=== PATIENT | female | born 1980 | race Caucasian/White ===

== ENCOUNTER 2018-08-20 19:09 | Emergency (ER) | payer BC ==
[2018-08-20 19:20] VITALS: BP 126/85
--- NOTE | 2018-08-20 21:16 | UC ---
Lower Extremity/Ankle HPI - HPI Summary HPI Summary: 37-year-old female presents with complaints of right knee pain. States she injured the knee earlier this evening while skiing causing a twisting injury prior to falling. She complains of pain and swelling to the medial aspect of the knee. She was unable to bear weight immediately after the injury or in the clinic. Denies numbness or tingling. - History of Current Complaint Chief Complaint: UCLowerExtremity Stated Complaint: LEG INJURY Time Seen by Provider: 08/20/18 20:14 Hx Obtained From: Patient Hx Last Menstrual Period: 3 wks ago Pain Intensity: 3 - Allergies/Home Medications Allergies/Adverse Reactions: Allergies Allergy/AdvReac Type Severity Reaction Status Date / Time No Known Allergies Allergy Verified 08/20/18 19:20 Home Medications: Home Medications NK [No Home Medications Reported] 08/20/18 [History Confirmed 08/20/18] PMH/Surg Hx/FS Hx/Imm Hx Previously Healthy: Yes - Denies significant PMH - Surgical History Surgical History: None - Family History Known Family History: Positive: Non-Contributory - Social History Occupation: Employed Full-time Lives: With Family Alcohol Use: None Substance Use Type: None Smoking Status (MU): Never Smoked Tobacco - Immunization History Most Recent Influenza Vaccination: 2011 Most Recent Tetanus Shot: 2011 Review of Systems All Other Systems Reviewed And Are Negative: Yes Constitutional: Positive: Negative Skin: Negative: Bruising Respiratory: Positive: Negative Cardiovascular: Positive: Negative Gastrointestinal: Positive: Negative Genitourinary: Positive: Negative Motor: Negative: Weakness Neurovascular: Negative: Decreased Sensation Musculoskeletal: Positive: Other: - See HPI Neurological: Positive: Negative Psychological: Positive: Negative Physical Exam - Summary Physical Exam Summary: GENERAL APPEARANCE: Well developed, well nourished, alert and cooperative, and appears to be in no acute distress. CARDIAC: Normal S1 and S2. No S3, S4 or murmurs. Rhythm is regular. There is no peripheral edema, cyanosis or pallor. Extremities are warm and well perfused. Capillary refill is less than 2 seconds. Peripheral pulses intact. LUNGS: Clear to auscultation without rales, rhonchi, wheezing or diminished breath sounds. ABDOMEN: Positive bowel sounds. Soft, nondistended, nontender. No guarding or rebound. No masses or hepatosplenomegally. MUSKULOSKELETAL: Tenderness and swelling to the medial aspect of the right knee with mild erythema and moderate edema. Painful passive ROM. No laxity. Unable to bear weight. NEUROLOGICAL: Strength and sensation symmetric and intact. SKIN: Skin normal color, texture and turgor. Triage Information Reviewed: Yes Vital Signs: Initial Vital Signs Temp 99.2 F 08/20/18 19:18 Pulse 59 08/20/18 19:18 Resp 18 08/20/18 19:18 BP 126/85 08/20/18 19:18 Pulse Ox 99 08/20/18 19:18 Vital Signs Reviewed: Yes Diagnostics - Radiology No standard instances Radiology Interpretation Completed By: ED Physician Summary of Radiographic Findings: No acute fracture or dislocation Lower Extremity Course/Dx - Course Course Of Treatment: 37-year-old female presents with complaints of right knee pain. States she injured the knee earlier this evening while skiing causing a twisting injury prior to falling. She complains of pain and swelling to the medial aspect of the knee. She was unable to bear weight immediately after the injury or in the clinic. Denies numbness or tingling. Exam reveals an alert female in no acute distress however does appear to be mildly uncomfortable keeping her knee extended for comfort. There is tenderness and swelling to the medial aspect of the right knee with some mild erythema. No laxity is noted. Circulation and sensation are intact distally. X-ray of the right knee showed no acute fracture or dislocation. Patient declined any pain medication. I am recommending conservative treatment for a right knee sprain with NSAIDs and RICE. She was provided crutches and recommended nonweight bearing 2 days with slow progression back to full weightbearing. She is to follow-up with orthopedic surgery in 5 days for reevaluation. Anticipatory guidance and warning symptoms were reviewed with the patient. Verbalizes understanding and agrees with plan of care. - Differential Dx/Diagnosis Differential Diagnosis/HQI/PQRI: Contusion, Fracture (Closed), Sprain Provider Diagnosis: Right knee sprain Discharge - Sign-Out/Discharge Documenting (check all that apply): Patient Departure All imaging exams completed and their final reports reviewed: No - Discharge Plan Condition: Stable Disposition: HOME Patient Education Materials: Knee Sprain (ED) Referrals: Florinda Davis MD [Primary Care Provider] - Stephanie Mcdaniels MD [Medical Doctor] - 5 Days (Call Thursday for an appointment.) Additional Instructions: The x-ray of your knee performed in the clinic [facility] showed no evidence of a fracture. The radiologist will be reviewing the x-ray tomorrow and we will contact you if they see anything that would change our plan of care. Take ibuprofen 600 mg every 8 hours with food for next 5-7 days then may take as needed. Rest the knee as much as possible. Use the crutches provided to you. No weightbearing for 2 days then you may slowly increase weightbearing until you are pain-free. Apply ice to the knee for 15-20 minutes at least 4 times a day to help with pain and swelling. You may use an MORENITA wrap or compression sleeve to the knee to help control swelling. Keep the leg elevated to help reduce swelling. Follow up with Dr. Mcdaniels, orthopedic surgery, for re-evaluation of the knee. Call first thing Thursday for an appointment. Seek immediate medical attention in the emergency room if you have severe pain not managed with pain medication, you develop numbness or tingling in the leg, foot, or toes, the foot or toes become pale or blue in color, or any worsening of symptoms. - Billing Disposition and Condition Condition: STABLE Disposition: Home
--- NOTE | 2018-08-21 15:03 | UC ---
- Progress Note Progress Note: OFFICIAL RADIOLOGY REPORT REVIEWED. No definite fracture is noted although small suprapatellar effusion is noted. NO CHANGE IN MGMT. Course/Dx - Diagnoses Provider Diagnoses: Right knee sprain Discharge - Sign-Out/Discharge Documenting (check all that apply): Post-Discharge Follow Up All imaging exams completed and their final reports reviewed: Yes - Discharge Plan Condition: Stable Disposition: HOME Patient Education Materials: Knee Sprain (ED) Referrals: Florinda Davis MD [Primary Care Provider] - Stephanie Mcdaniels MD [Medical Doctor] - 5 Days (Call Thursday for an appointment.) Additional Instructions: The x-ray of your knee performed in the clinic [facility] showed no evidence of a fracture. The radiologist will be reviewing the x-ray tomorrow and we will contact you if they see anything that would change our plan of care. Take ibuprofen 600 mg every 8 hours with food for next 5-7 days then may take as needed. Rest the knee as much as possible. Use the crutches provided to you. No weightbearing for 2 days then you may slowly increase weightbearing until you are pain-free. Apply ice to the knee for 15-20 minutes at least 4 times a day to help with pain and swelling. You may use an MORENITA wrap or compression sleeve to the knee to help control swelling. Keep the leg elevated to help reduce swelling. Follow up with Dr. Mcdaniels, orthopedic surgery, for re-evaluation of the knee. Call first thing Thursday for an appointment. Seek immediate medical attention in the emergency room if you have severe pain not managed with pain medication, you develop numbness or tingling in the leg, foot, or toes, the foot or toes become pale or blue in color, or any worsening of symptoms. - Billing Disposition and Condition Condition: STABLE Disposition: Home
== END 2018-08-20 21:42 | disposition home or self-care (01) ==
LOC: UCEAST 19:09
DX: S83.91XA Sprain of unspecified site of right knee, initial encounter (principal); W19.XXXA Unspecified fall, initial encounter; Y93.23 Activity, snow (alpine) (downhill) skiing, snowboarding, sledding, tobogganing and snow tubing; Y92.9 Unspecified place or not applicable
CPT/HCPCS: 99212; G0463